=== PATIENT | female | born 1990 | race Caucasian/White ===

== ENCOUNTER 2022-02-17 19:12 | Inpatient (IN) | payer BC ==
[~2022-02-17 19:12] MED LIST: Bupivacaine 0.25% HCL 30 ML VIAL ONE; Lidocaine 2% PF 5 ML VIAL ONE
[2022-02-17] MEDS ORDERED: Promethazine HCl 25 MG/ML VIAL IM PRN (20:58)
[2022-02-17] MEDS ORDERED: hydrALAZINE 20 MG/ML VIAL SLOW IVP PRN (20:58)
[2022-02-17] MEDS ORDERED: Ondansetron PF 4 MG/2 ML Vial IVP PRN (20:58)
[2022-02-17] MEDS ORDERED: Butorphanol Tartrate 1 MG/ML VIAL SLOW IVP PRN (21:03)
[2022-02-17] MEDS: Misoprostol 100 MCG TAB VAG SCH (21:10)
[2022-02-17 21:25] LABS: Hemoglobin 11.5 g/dL (12.0-15.5); Mean Corpuscular HGB CONC 33.7 g/dL (32.0-36.0); Mean Corpuscular Hemoglobin 29.9 pg (27.0-33.0); Mean Corpuscular Volume 88.8 fl (81.6-98.3); Platelet Count 234 10x3/uL (150-450); RBC Distribution Width 14.3 % (11.5-14.5); Red Blood Cell (RBC) Count 3.84 10x6/uL (3.90-5.03); White Blood Cell (WBC) Count 10.4 10x3/uL (3.5-10.5)
[2022-02-17 23:11] LABS: Syphilis Antibody Nonreactive (Nonreactive); Syphilis Antibody Index 0.02 S/CO (<1.00 Non-Reactive)
[2022-02-17 23:12] LABS: HBSAg Index 0.17 S/CO (0-0.99); Hep B Surf Ag Non-Reactive S/CO (NonReactive)
[2022-02-17 23:18] LABS: SARS-CoV-2 NAA Rapid Test Not Detected (NotDetected)
[2022-02-18] MEDS ORDERED: Misoprostol 100 MCG TAB ONE (09:46)
[2022-02-18] MEDS: Misoprostol 100 MCG TAB VAG SCH ×2 (09:52→18:13)
[2022-02-18] MEDS ORDERED: NS w/ Oxytocin 30 units 500 ML ONE (17:33)
[2022-02-18] MEDS ORDERED: NS w/ Oxytocin 30 units 500 ML IV SCH ×2 (17:45)
[2022-02-19] MEDS ORDERED: Fentanyl 2 mcg/Bup 0.1% Cadd 100 ML ONE (07:06)
[2022-02-19] MEDS ORDERED: Lactated Ringer's 500 ML IV PRN (08:06)
[2022-02-19] MEDS ORDERED: diphenhydrAMINE 50 MG/ML VIAL IVP PRN (08:06)
[2022-02-19] MEDS ORDERED: Naloxone HCl 0.4 mg/ml Vial IVP PRN ×2 (08:06)
[2022-02-19] MEDS ORDERED: Promethazine HCl 25 MG/ML VIAL IM PRN (08:06)
[2022-02-19] MEDS ORDERED: ePHEDrine Sulfate 50 MG/10 ML VIAL SLOW IVP PRN (08:06)
[2022-02-19] MEDS ORDERED: Ondansetron PF 4 MG/2 ML Vial IVP PRN (08:06)
[2022-02-19] MEDS ORDERED: Acetaminophen 325 MG TAB PO PRN (08:06)
[2022-02-19] MEDS ORDERED: Moisturizing Cream (Eucerin) 113 GM JAR TOP PRN (08:06)
[2022-02-19] MEDS ORDERED: Communication Order-Pharmacy FS SCH (08:15)
[2022-02-19] MEDS ORDERED: Fentanyl 2 mcg/Bupivacaine 0.1% Cassette 100 ML EPIDURAL SCH (08:15)
[2022-02-19] MEDS ORDERED: Lidocaine 1% (PF) 30 ML VIAL ONE (14:37)
[2022-02-19] MEDS ORDERED: Methylergonovine 0.2 MG/ML VIAL ONE (14:43)
[2022-02-19] MEDS ORDERED: Misoprostol 200 MCG TAB ONE (14:43)
[2022-02-19] MEDS ORDERED: Carboprost 250 MCG/ML AMP ONE (14:44)
[2022-02-19] MEDS ORDERED: Butorphanol Tartrate 1 MG/ML VIAL ONE (15:14)
[2022-02-19] MEDS ORDERED: Butorphanol Tartrate 1 MG/ML VIAL SLOW IVP SCH (17:00)
[2022-02-19] MEDS ORDERED: Methylergonovine 0.2 MG/ML VIAL IM PRN (17:28)
[2022-02-19] MEDS ORDERED: Bisacodyl 10 MG SUPP PR PRN (17:28)
[2022-02-19] MEDS ORDERED: HYDROcodone/Acetaminophen 5/325 mg Tablet PO PRN (17:28)
[2022-02-19] MEDS ORDERED: Lanolin Ointment 7 GM TUBE TOP PRN (17:28)
[2022-02-19] MEDS ORDERED: Preparation H Ointment 28 GM TUBE PR PRN (17:28)
[2022-02-19] MEDS ORDERED: Misoprostol 200 MCG TAB VAG PRN (17:28)
[2022-02-19] MEDS ORDERED: Benzocaine-Menthol 82.5 ML CAN TOP PRN (17:28)
[2022-02-19] MEDS ORDERED: Boostrix 0.5 ML (Tdap) VIAL (>/=7 yrs of age) IM ONE (17:28)
[2022-02-19] MEDS: Ferrous Sulfate 325 MG TAB PO SCH (18:52)
[2022-02-19] MEDS: Acetaminophen 500 MG TAB PO SCH (20:01)
[2022-02-19] MEDS: Docusate 100 MG CAP PO SCH (21:05)
[2022-02-19] MEDS: Ibuprofen 800 MG TAB PO SCH (21:06)
[2022-02-20] MEDS: Acetaminophen 500 MG TAB PO SCH ×4 (00:31→17:23)
[2022-02-20 04:07] LABS: #Monocytes 1.7 10x3/uL (0.0-1.1); #Neutrophils 10.2 10x3/uL (1.5-8.4); %Basophils 0.1 % (0.0-2.0); %Eosinophils 0.2 % (0.0-6.0); %Lymphocytes 9.7 % (18.0-47.0); %Neutrophils 76.6 % (40.0-75.0); Hemoglobin 10.3 g/dL (12.0-15.5); Mean Corpuscular HGB CONC 33.9 g/dL (32.0-36.0); Mean Corpuscular Hemoglobin 30.6 pg (27.0-33.0); Mean Corpuscular Volume 90.2 fl (81.6-98.3); Mean Platelet Volume 11.1 fl (7.4-10.4); Platelet Count 199 10x3/uL (150-450); RBC Distribution Width 14.5 % (11.5-14.5); Red Blood Cell (RBC) Count 3.37 10x6/uL (3.90-5.03); White Blood Cell (WBC) Count 13.4 10x3/uL (3.5-10.5)
[2022-02-20] MEDS: Ibuprofen 800 MG TAB PO SCH ×3 (05:49→21:35)
[2022-02-20] MEDS: Ferrous Sulfate 325 MG TAB PO SCH ×2 (08:02→11:46)
[2022-02-20] MEDS: Milk Of Magnesia 30 ML UDCUP PO SCH (08:34)
[2022-02-20] MEDS: Prenatal Vitamin 1 TAB PO SCH (08:46)
[2022-02-20] MEDS: Docusate 100 MG CAP PO SCH ×2 (08:46→21:36)
[2022-02-21] MEDS: Ibuprofen 800 MG TAB PO SCH (05:52)
[2022-02-21] MEDS: Acetaminophen 500 MG TAB PO SCH ×2 (06:38)
[2022-02-21] MEDS: Ferrous Sulfate 325 MG TAB PO SCH (07:15)
[2022-02-21] MEDS: Milk Of Magnesia 30 ML UDCUP PO SCH (08:14)
[2022-02-21] MEDS: Docusate 100 MG CAP PO SCH (08:14)
[2022-02-21] MEDS: Prenatal Vitamin 1 TAB PO SCH (08:14)
[2022-02-21 08:23] VITALS: BP 118/70; TEMP 98
== END 2022-02-21 12:45 | disposition home or self-care (01) | DRG 805 ==
LOC: CSHLD 19:12 → CSHPP 02-19 19:22
PROVIDERS: ADMIT Student in an Organized Health Care Education/Training Program; ATTEND Student in an Organized Health Care Education/Training Program
PROC: 3E033VJ Introduction of Other Hormone into Peripheral Vein, Percutaneous Approach (ICD-10-PCS; 2022-02-17)
PROC: 10E0XZZ Delivery of Products of Conception, External Approach (ICD-10-PCS; principal; 2022-02-19)
PROC: 0KQM0ZZ Repair Perineum Muscle, Open Approach (ICD-10-PCS; 2022-02-19)
PROC: 0UQMXZZ Repair Vulva, External Approach (ICD-10-PCS; 2022-02-19)
PROC: 10907ZC Drainage of Amniotic Fluid, Therapeutic from Products of Conception, Via Natural or Artificial Opening (ICD-10-PCS; 2022-02-19)
PROC: 3E033VJ Introduction of Other Hormone into Peripheral Vein, Percutaneous Approach (ICD-10-PCS; 2022-02-19)
DX: O26.62 Liver and biliary tract disorders in childbirth (principal); K83.1 Obstruction of bile duct; Z37.0 Single live birth; Z20.822 Contact with and (suspected) exposure to COVID-19; O70.1 Second degree perineal laceration during delivery; Z3A.37 37 weeks gestation of pregnancy; O62.2 Other uterine inertia
CPT/HCPCS: 36415; 51702; 85025; 85027; 86780; 86850; 86900; 86901; 87340; J0595; J2001; J2210; J2590; S0020; U0002